=== PATIENT | female | born 1995 | race African-American/Black ===

== ENCOUNTER 2021-12-13 19:29 | Emergency (ER) | payer OTHER ==
[2021-12-13 21:25] LABS: BASO % 0.6 % (0.0-1.0); EOS # 0.4 10*3/uL (0.0-0.4); HEMATOCRIT 33.9 % (37.0-47.0); LYMPH # 3.2 10*3/uL (1.3-4.4); LYMPH % 45.7 % (27.0-41.0); MEAN CELL VOLUME 86.9 fl (81.0-99.0); MEAN CORPUSCULAR HGB 27.9 pg (27.0-31.0); MEAN CORPUSCULAR HGB CONC 32.2 g/dl (33.0-37.0); MEAN PLATELET VOLUME 10.1 fl (9.6-12.3); MONO # 0.4 10*3/uL (0.1-1.0); MONO % 6.3 % (3.0-9.0); NEUT # 2.9 10*3/uL (2.3-7.9); NEUT % 42.3 % (47.0-73.0); PLATELET COUNT AUTOMATED 241 10*3/uL (130-400)
[2021-12-13 21:45] LABS: ALKALINE PHOSPHATASE 94 U/L (45-117); BUN 9 mg/dl (7-24); CHLORIDE 108 mmol/L (98-107); CREATININE 0.85 mg/dL (0.55-1.02); POTASSIUM 3.6 mmol/L (3.5-5.1); SGOT/AST 14 IU/L (3-35); SGPT/ALT 26 U/L (12-78); SODIUM 140 mmol/L (136-145); TOTAL PROTEIN 6.7 gm/dL (6.4-8.2)
[2021-12-13 21:47] LABS: B-hCG (QUALITATIVE) NEGATIVE (NEGATIVE)
[2021-12-13] MEDS ORDERED: NAPROSYN500 MG PO (23:32)
== END 2021-12-13 23:39 | disposition home or self-care (01) ==
LOC: ED 19:29
PROVIDERS: Emergency Medicine
DX: M54.2 Cervicalgia (principal)

== ENCOUNTER 2022-05-15 14:12 | Emergency (ER) | payer OTHER ==
[~2022-05-15 14:12] MED LIST: NAPROSYN500 MG PO
== END 2022-05-15 15:12 | disposition home or self-care (01) ==
LOC: ED 14:12
DX: F10.10 Alcohol abuse, uncomplicated (principal); Z98.890 Other specified postprocedural states